=== PATIENT | male | born 1970 | race Caucasian/White ===

== ENCOUNTER 2018-01-26 10:55 | Emergency (ER) | payer OTHER ==
[2018-01-26 11:11] VITALS: RESP 18
[2018-01-26 11:43] LABS: Appearance,Urine Clear (Clear); Basophils % (A) 1 %; Bilirubin,Urine Negative (Negative); Blood,Urine Negative (Negative); Color,Urine Colorless; Eosinophils # (A) 0.1 k/uL (0-0.7); Eosinophils % (A) 2 %; Glucose,Urine (UA) Negative (Negative); HCT 45.3 % (39.0-53.0); HGB 16.2 gm/dL (13.0-17.5); Ketones,Urine Negative (Negative); Leukocyte Esterase,Urine Negative (Negative); Lymphocytes # (A) 1.6 k/uL (1.0-4.8); Lymphocytes % (A) 26 %; MCH 29.6 pg (25.0-35.0); MCHC 35.7 g/dL (31.0-37.0); MCV 82.8 fL (80.0-100.0); Mean Platelet Volume 7.4; Monocytes # (A) 0.4 k/uL (0-1.0); Monocytes % (A) 6 %; Neutrophils % (A) 64 %; Nitrite,Urine Negative (Negative); Platelet Count 182 k/uL (150-450); Protein,Urine Negative (Negative); RBC 5.47 m/uL (4.30-5.90); RDW 13.3 % (11.5-15.5); Specific Gravity,Urine 1.001 (1.001-1.035); Urobilinogen,Urine <2.0 mg/dL (<2.0); WBC 6.3 k/uL (3.8-10.6)
[2018-01-26 11:52] LABS: ALT 50 U/L (21-72); AST 28 U/L (17-59); Albumin 4.7 g/dL (3.5-5.0); Alkaline Phosphatase 60 U/L (38-126); Amylase 53 U/L (30-110); Anion Gap 13 mmol/L; Blood Urea Nitrogen 11 mg/dL (9-20); Calcium 9.6 mg/dL (8.4-10.2); Carbon Dioxide 28 mmol/L (22-30); Chloride 101 mmol/L (98-107); Glucose 87 mg/dL (74-99); Lipase 36 U/L (23-300); Sodium 142 mmol/L (137-145); Total Bilirubin 0.4 mg/dL (0.2-1.3)
--- NOTE | 2018-01-26 11:58 | ED ---
General Adult HPI - General Chief complaint: Abdominal Pain Stated complaint: abd pain Time Seen by Provider: 01/26/18 11:38 Source: patient, RN notes reviewed Mode of arrival: ambulatory Limitations: no limitations - History of Present Illness Initial comments: Patient's 47-year-old male presents emergency room today with a chief complaint of right-sided abdominal pain. Patient does admit that he began feeling some symptoms of weakness ago. Patient states that approximately or days ago began having increased pain to the right side of the lower abdomen. Patient does admit that he followed the family doctor advised coming to emergency room for CT of the abdomen. Patient denies any other complaints or associated symptoms. Patient denies any recent fever, chills, shortness of breath, chest pain, back pain, numbness or tingling, dysuria or hematuria, constipation or diarrhea, headaches or visual changes, or any other complaints. - Related Data Home Medications Medication Instructions Recorded Confirmed Acetaminophen-Codeine 300-30mg 1 tab PO BID PRN 01/26/18 01/26/18 [Tylenol w/codeine #3] Gabapentin [Neurontin] 100 mg PO BID PRN 01/26/18 01/26/18 diphenhydrAMINE HCL [Benadryl] 25 mg PO HS PRN 01/26/18 01/26/18 Allergies Allergy/AdvReac Type Severity Reaction Status Date / Time copper Allergy Unknown Verified 01/26/18 12:12 grape Allergy Anaphylaxis Verified 01/26/18 12:12 ibuprofen [From Motrin] Allergy Anaphylaxis Verified 01/26/18 12:12 lemon Allergy Anaphylaxis Verified 01/26/18 12:12 nickel Allergy Unknown Verified 01/26/18 12:12 NSAIDS (Non-Steroidal Allergy Anaphylaxis Verified 01/26/18 12:12 Anti-Inflamma warfarin Allergy Anaphylaxis Verified 01/26/18 12:12 Review of Systems ROS Statement: Those systems with pertinent positive or pertinent negative responses have been documented in the HPI. ROS Other: All systems not noted in ROS Statement are negative. 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 His labs been reviewed are unremarkable. Patient's CT the abdomen and pelvis was performed without contrast due to patient's history of ALLERGIES. Patient at this time is resting comfortably. His CT the abdomen and pelvis is negative for any acute abnormality. Results were discussed with the patient. Patient will be discharged home to follow-up the family doctor over the next 2 days. Advised return if any symptoms increase or worsen or for any other concerns. - Lab Data Result diagrams: 01/26/18 11:26 01/26/18 11:26 Lab Results 01/26/18 01/26/18 01/26/18 Range/Units 11:26 11:26 11:26 WBC 6.3 (3.8-10.6) k/uL RBC 5.47 (4.30-5.90) m/uL Hgb 16.2 (13.0-17.5) gm/dL Hct 45.3 (39.0-53.0) % MCV 82.8 (80.0-100.0) fL MCH 29.6 (25.0-35.0) pg MCHC 35.7 (31.0-37.0) g/dL RDW 13.3 (11.5-15.5) % Plt Count 182 (150-450) k/uL Neutrophils % 64 % Lymphocytes % 26 % Monocytes % 6 % Eosinophils % 2 % Basophils % 1 % Neutrophils # 4.0 (1.3-7.7) k/uL Lymphocytes # 1.6 (1.0-4.8) k/uL Monocytes # 0.4 (0-1.0) k/uL Eosinophils # 0.1 (0-0.7) k/uL Basophils # 0.0 (0-0.2) k/uL Sodium 142 (137-145) mmol/L Potassium 4.0 (3.5-5.1) mmol/L Chloride 101 (98-107) mmol/L Carbon Dioxide 28 (22-30) mmol/L Anion Gap 13 mmol/L BUN 11 (9-20) mg/dL Creatinine 0.82 (0.66-1.25) mg/dL Est GFR (CKD-EPI)AfAm >90 (>60 ml/min/1.73 sqM) Est GFR (CKD-EPI)NonAf >90 (>60 ml/min/1.73 sqM) Glucose 87 (74-99) mg/dL Calcium 9.6 (8.4-10.2) mg/dL Total Bilirubin 0.4 (0.2-1.3) mg/dL AST 28 (17-59) U/L ALT 50 (21-72) U/L Alkaline Phosphatase 60 (38-126) U/L Total Protein 7.0 (6.3-8.2) g/dL Albumin 4.7 (3.5-5.0) g/dL Amylase 53 (30-110) U/L Lipase 36 (23-300) U/L Urine Color Colorless Urine Appearance Clear (Clear) Urine pH 7.0 (5.0-8.0) Ur Specific Dunlap 1.001 (1.001-1.035) Urine Protein Negative (Negative) Urine Glucose (UA) Negative (Negative) Urine Ketones Negative (Negative) Urine Blood Negative (Negative) Urine Nitrite Negative (Negative) Urine Bilirubin Negative (Negative) Urine Urobilinogen <2.0 (<2.0) mg/dL Ur Leukocyte Esterase Negative (Negative) Disposition Clinical Impression: Abdominal pain Disposition: HOME SELF-CARE Condition: Good Instructions: Abdominal Pain (ED) Additional Instructions: Please follow-up with family doctor in the next 2 days of symptoms have not improved. Please return to emergency room if the symptoms increase or worsen or for any other concerns. Is patient prescribed a controlled substance at d/c from ED?: No Referrals: [facility],Clinic [Primary Care Provider] - 1-2 days Time of Disposition: 12:37
--- NOTE | 2018-01-26 12:24 | CT ---
EXAMINATION TYPE: CT abdomen pelvis wo con DATE OF EXAM: 01/26/2018 COMPARISON: NONE HISTORY: Right sided Abdominal pain CT DLP: 447.8 mGycm Examination of the solid and hollow viscera is limited given the lack of contrast. FINDINGS: LUNG BASES: No evidence for nodule. No evidence for infiltrate. LIVER/GB: The gallbladder is unremarkable. No space-occupying hepatic lesion. PANCREAS: No pancreatic mass identified. No inflammatory process seen. SPLEEN: No evidence for splenomegaly. No intrasplenic lesions seen. ADRENALS: No adrenal nodules identified. No evidence for thickening. KIDNEYS: No evidence for renal mass. No nephrolithiasis. No hydronephrosis. BOWEL: Previous appendectomy change. No evidence of bowel obstruction. No inflammatory process. Lymph nodes: No evidence for adenopathy greater than 1 cm. Abdominal aorta: Atheromatous changes seen. No evidence for aneurysm. Genital organs: No significant abnormality. Other: No significant abnormality. IMPRESSION: No acute intra-abdominal process.
[2018-01-26 13:00] VITALS: BP 126/80; PULSE 61; TEMP 98.1
== END 2018-01-26 12:59 | disposition home or self-care (01) ==
LOC: EC 10:55
DX: R10.31 Right lower quadrant pain (principal); Z91.048 Other nonmedicinal substance allergy status; Z91.018 Allergy to other foods; Z88.6 Allergy status to analgesic agent; Z88.8 Allergy status to other drugs, medicaments and biological substances
CPT/HCPCS: 36415; 74176; 80053; 81003; 82150; 83690; 85025; 99284

== ENCOUNTER → 2019-02-19 | Outpatient (CLI) | payer OTHER ==
--- NOTE | 2019-02-19 12:33 | MR ---
MR abdomen without contrast HISTORY: Previous abnormal exam on diagnostic imaging Multiplanar multisequence imaging through the abdomen Correlation to CT abdomen 01/26/2018 Exophytic focus present at the left upper kidney measures approximately 2.3 cm similar to prior exam. The upper pole the left kidney there is an exophytic focus measuring approximately 2.4 cm which is T 1 intense. The upper pole lesion on the left is isointense on T1 weighted images, both lesions T2 int ermediate to increased signal. Smaller focus at the midpole the right kidney in exophytic location me asures 1.8 cm similar to prior and is T2 bright. Subcentimeter T2 bright foci present within the mid to lower pole the left kidney more anteriorly There is no hydronephrosis bilaterally. No evident adre nal mass. The liver shows some signal drop on out of phase imaging suggesting some hepatic steatosis, size is upper limit of normal, and gallbladder is unremarkable. Pancreas is within normal limits. Sp paulina is upper limit of normal for size. Lung bases are clear. There is no retroperitoneal adenopathy or ascites evident. Aorta shows normal caliber. No evident bowel obstruction. IMPRESSION: Findings within the kidneys likely represent proteinaceous cysts. Follow-up can be perfor med to assess for stability. Additional findings above. Correlate for possible hepatic steatosis.
== END | disposition home or self-care (01) ==
LOC: RADMRIMAIN 07:36
DX: R93.89 Abnormal findings on diagnostic imaging of other specified body structures (principal)
CPT/HCPCS: 74181

== ENCOUNTER → 2019-07-17 | Outpatient (CLI) | payer OTHER ==
--- NOTE | 2019-07-18 14:32 | NM ---
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 Right knee replacement in 2013. Elier velazquez reports history of infection of the right knee following the first surgery. Multiple replaceme nts were needed in 2013. Technique: Triple phase bone scintigraphy was performed following the injection of 25.4 mCi Tc 99m MD P. Immediate images and 3.5 hours post injection images acquired. Imaging was centered at the bilate ral knees. FINDINGS: Flow images show no asymmetric hyperemia. Pool images are relatively symmetric. Photopenic defects re lating to revision right total knee arthroplasty. Only mild uptake along the tibial tray component on delayed images. No intense focal abnormal radiotracer accumulation at the right knee. IMPRESSION: No specific scintigraphic findings of revision right total knee arthroplasty loosening.
== END | disposition home or self-care (01) ==
LOC: RADNMMAIN 06:55
PROVIDERS: ATTEND Physician Assistant Medical
DX: T84.032A Mechanical loosening of internal right knee prosthetic joint, initial encounter (principal)
CPT/HCPCS: 78315; A9503

== ENCOUNTER → 2019-12-20 | Outpatient (CLI) | payer OTHER ==
--- NOTE | 2019-12-20 16:23 | NM ---
EXAMINATION TYPE: NM hepatobiliary w EF DATE OF EXAM: 12/20/2019 COMPARISON: NONE HISTORY: 49 year-old male right upper quadrant pain TECHNIQUE: After the intravenous administration of 5.1 mCi Tc 99m Mebrofenin hepatobiliary scintigrap hy is performed. Immediate images post injection. FINDINGS: There is satisfactory initial accumulation of tracer by the liver. The gallbladder is visualized wit hin 16 minutes. The small bowel activity is noted within 40 minutes. At one hour 8 ounces of oral e nsure plus is given to mimic CCK and gallbladder ejection fraction is calculated at 77 %, upper end o f the normal range. Therefore there is no scintigraphic evidence of cystic or common bile duct obstr uction to suggest acute cholecystitis or gallbladder dyskinesia. IMPRESSION: 1. No scintigraphic evidence for acute/chronic cholecystitis or biliary dyskinesia. 2. Gallbladder ejection fraction at the upper limits of the normal range. Elevated gallbladder ejecti on fraction may be seen in the setting of gallbladder hyperkinesis.
== END | disposition home or self-care (01) ==
LOC: RADNMMAIN 12:55
PROVIDERS: ATTEND Physician Assistant Medical
DX: K82.8 Other specified diseases of gallbladder (principal); Z91.030 Bee allergy status; Z91.040 Latex allergy status; Z91.011 Allergy to milk products; Z88.6 Allergy status to analgesic agent; Z91.018 Allergy to other foods; Z91.041 Radiographic dye allergy status; Z88.8 Allergy status to other drugs, medicaments and biological substances; Z88.3 Allergy status to other anti-infective agents
CPT/HCPCS: 78226; A9537

== ENCOUNTER 2020-04-10 17:18 | Emergency (ER) | payer OTHER ==
--- NOTE | 2020-04-10 17:58 | ED ---
General Adult HPI - General Chief complaint: Recheck/Abnormal Lab/Rx Stated complaint: infected lt hand Time Seen by Provider: 04/10/20 17:41 Source: patient, RN notes reviewed Mode of arrival: ambulatory Limitations: no limitations - History of Present Illness Initial comments: This is a 49-year-old male with a history of left hand/thumb surgery on February 22 of this year who currently is on antibiotics who presents with complaints of pain going up into his left arm. He has a fevers chills nausea vomiting sweats he was initially on amoxicillin and now is on Bactrim 6 days. He states that seems to be a better but can't explain the pain. - Related Data Home Medications Medication Instructions Recorded Confirmed Acetaminophen-Codeine 300-30mg 1 tab PO BID PRN 01/26/18 01/26/18 [Tylenol w/codeine #3] Gabapentin [Neurontin] 100 mg PO BID PRN 01/26/18 01/26/18 diphenhydrAMINE HCL [Benadryl] 25 mg PO HS PRN 01/26/18 01/26/18 Allergies Allergy/AdvReac Type Severity Reaction Status Date / Time copper Allergy Unknown Verified 04/10/20 17:30 grape Allergy Anaphylaxis Verified 04/10/20 17:30 ibuprofen [From Motrin] Allergy Anaphylaxis Verified 04/10/20 17:30 lemon Allergy Anaphylaxis Verified 04/10/20 17:30 nickel Allergy Unknown Verified 04/10/20 17:30 NSAIDS (Non-Steroidal Allergy Anaphylaxis Verified 04/10/20 17:30 Anti-Inflamma warfarin Allergy Anaphylaxis Verified 04/10/20 17:30 Review of Systems ROS Statement: Those systems with pertinent positive or pertinent negative responses have been documented in the HPI. ROS Other: All systems not noted in ROS Statement are negative. 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 History of Any Multi-Drug Resistant Organisms: None Reported Past Surgical History: Joint Replacement, Orthopedic Surgery Additional Past Surgical History / Comment(s): L hand Past Psychological History: No Psychological Hx Reported Smoking Status: Never smoker Past Alcohol Use History: None Reported Past Drug Use History: None Reported General Exam - General Exam Comments Initial Comments: This is a well-developed well-nourished awake alert oriented 3 male Limitations: no limitations General appearance: alert, in no apparent distress Head exam: Present: atraumatic, normocephalic, normal inspection Eye exam: Present: normal appearance. Absent: scleral icterus, conjunctival injection, periorbital swelling Neck exam: Present: normal inspection. Absent: tenderness, meningismus, lymphadenopathy Respiratory exam: Absent: respiratory distress, wheezes, rales, rhonchi, stridor Cardiovascular Exam: Present: regular rate. Absent: systolic murmur, diastolic murmur, rubs, gallop, clicks GI/Abdominal exam: Present: soft, normal bowel sounds. Absent: distended, tenderness, guarding, rebound, rigid Extremities exam: Present: full ROM, tenderness, normal capillary refill, other (Examination left upper extremity demonstrates equal and normal ulnar and radial artery pulses at the wrist. Scar seen over the region of the anatomical snuffbox on the left. Capillary refills less than 2 seconds to all extremities. No sensory deficits. There is tenderness palpation along the medial aspect of the left arm extending up into the axilla. No evidence of lymphangitis however at this time no increased localized temperature.). Absent: pedal edema, joint swelling, calf tenderness Neurological exam: Present: alert, oriented X3, CN II-XII intact Psychiatric exam: Present: normal affect, normal mood Skin exam: Present: warm, dry, intact, normal color. Absent: rash Course Vital Signs 04/10/20 04/10/20 17:31 18:24 Temperature 98.1 F Pulse Rate 83 Respiratory 18 16 Rate Blood Pressure 138/81 O2 Sat by Pulse 96 Oximetry Medical Decision Making - Medical Decision Making The patient examination did not seem to indicate an infectious etiology at this time ultrasound negative no palpable cords. No evidence of any clots this time. Patient will be discharged and keep his follow-up with his hand surgeon at [facility]. - Lab Data Result diagrams: 04/10/20 17:56 04/10/20 17:56 Lab Results 04/10/20 04/10/20 04/10/20 Range/Units 17:56 17:56 17:56 WBC 9.8 (3.8-10.6) k/uL RBC 5.06 (4.30-5.90) m/uL Hgb 14.6 (13.0-17.5) gm/dL Hct 43.2 (39.0-53.0) % MCV 85.4 (80.0-100.0) fL MCH 28.9 (25.0-35.0) pg MCHC 33.9 (31.0-37.0) g/dL RDW 11.9 (11.5-15.5) % Plt Count 204 (150-450) k/uL Neutrophils % 84 % Lymphocytes % 10 % Monocytes % 4 % Eosinophils % 1 % Basophils % 1 % Neutrophils # 8.2 H (1.3-7.7) k/uL Lymphocytes # 1.0 (1.0-4.8) k/uL Monocytes # 0.4 (0-1.0) k/uL Eosinophils # 0.1 (0-0.7) k/uL Basophils # 0.1 (0-0.2) k/uL D-Dimer 2.64 H (<0.60) mg/L FEU Sodium 136 L (137-145) mmol/L Potassium 3.8 (3.5-5.1) mmol/L Chloride 102 (98-107) mmol/L Carbon Dioxide 22 (22-30) mmol/L Anion Gap 12 mmol/L BUN 11 (9-20) mg/dL Creatinine 0.91 (0.66-1.25) mg/dL Est GFR (CKD-EPI)AfAm >90 (>60 ml/min/1.73 sqM) Est GFR (CKD-EPI)NonAf >90 (>60 ml/min/1.73 sqM) Glucose 136 H (74-99) mg/dL Calcium 9.1 (8.4-10.2) mg/dL Magnesium 2.2 (1.6-2.3) mg/dL Total Bilirubin 0.3 (0.2-1.3) mg/dL AST 27 (17-59) U/L ALT 18 (4-49) U/L Alkaline Phosphatase 53 (38-126) U/L Creatine Kinase 180 H (55-170) U/L Total Protein 6.8 (6.3-8.2) g/dL Albumin 4.7 (3.5-5.0) g/dL - Radiology Data Radiology results: report reviewed (I did review the imaging and report no acute findings.), image reviewed Disposition Clinical Impression: Arm pain, left, Feared condition not demonstrated Disposition: HOME SELF-CARE Condition: Good Instructions (If sedation given, give patient instructions): Arm Pain (ED) Is patient prescribed a controlled substance at d/c from ED?: No Referrals: [facility],Clinic [Primary Care Provider] - 1-2 days
[2020-04-10 18:14] LABS: Basophils # (A) 0.1 k/uL (0-0.2); Basophils % (A) 1 %; Eosinophils # (A) 0.1 k/uL (0-0.7); Eosinophils % (A) 1 %; HCT 43.2 % (39.0-53.0); HGB 14.6 gm/dL (13.0-17.5); Lymphocytes % (A) 10 %; MCH 28.9 pg (25.0-35.0); MCHC 33.9 g/dL (31.0-37.0); MCV 85.4 fL (80.0-100.0); Mean Platelet Volume 8.2; Monocytes # (A) 0.4 k/uL (0-1.0); Monocytes % (A) 4 %; Neutrophils # (A) 8.2 k/uL (1.3-7.7); Neutrophils % (A) 84 %; Platelet Count 204 k/uL (150-450); RBC 5.06 m/uL (4.30-5.90); RDW 11.9 % (11.5-15.5); WBC 9.8 k/uL (3.8-10.6)
[2020-04-10 18:25] VITALS: RESP 16
[2020-04-10 18:25] LABS: ALT 18 U/L (4-49); AST 27 U/L (17-59); African American GFR (CKD) >90 (>60 ml/min/1.73 sqM); Albumin 4.7 g/dL (3.5-5.0); Alkaline Phosphatase 53 U/L (38-126); Anion Gap 12 mmol/L; Blood Urea Nitrogen 11 mg/dL (9-20); Calcium 9.1 mg/dL (8.4-10.2); Carbon Dioxide 22 mmol/L (22-30); Chloride 102 mmol/L (98-107); Creatine Kinase 180 U/L (55-170); Glucose 136 mg/dL (74-99); Magnesium 2.2 mg/dL (1.6-2.3); Non-African American GFR(CKD) >90 (>60 ml/min/1.73 sqM); Potassium 3.8 mmol/L (3.5-5.1); Sodium 136 mmol/L (137-145); Total Bilirubin 0.3 mg/dL (0.2-1.3); Total Protein 6.8 g/dL (6.3-8.2)
--- NOTE | 2020-04-10 19:15 | US ---
EXAMINATION TYPE: US venous doppler duplex UE LT DATE OF EXAM: 04/10/2020 COMPARISON: NONE CLINICAL HISTORY: Postoperative pain. Recent surgery to left hand, pt having left hand/lower arm swel ling and redness SIDE PERFORMED: Left Left Arm: Negative for DVT There is patency of the subclavian axillary and brachial vein of the left arm. IMPRESSION: No evidence of deep vein thrombosis in the left arm.
[2020-04-10 20:17] VITALS: BP 129/72; PULSE 77; TEMP 98.5
== END 2020-04-10 20:10 | disposition home or self-care (01) ==
LOC: EC 17:18
DX: M79.602 Pain in left arm (principal); R50.9 Fever, unspecified; R11.2 Nausea with vomiting, unspecified; R61 Generalized hyperhidrosis; Z88.6 Allergy status to analgesic agent; Z88.8 Allergy status to other drugs, medicaments and biological substances; Z91.018 Allergy to other foods; Z91.048 Other nonmedicinal substance allergy status; Z71.1 Person with feared health complaint in whom no diagnosis is made
CPT/HCPCS: 36415; 80053; 82550; 83735; 85025; 85379; 87040; 99284

== ENCOUNTER 2020-04-11 09:22 | Emergency (ER) | payer OTHER ==
[2020-04-11 09:29] VITALS: TEMP 98.2
--- NOTE | 2020-04-11 09:48 | ED ---
Extremity Problem HPI - General Chief complaint: Extremity Problem,Nontraumatic Stated complaint: poss blood clot in leg Time Seen by Provider: 04/11/20 09:30 Source: patient Mode of arrival: ambulatory Limitations: no limitations - History of Present Illness Initial comments: Patient is a 49-year-old male presenting to the emergency department complaints of right leg cramping has been intermittent for the past few days. 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 He is concerned he may have another one. He is no longer on blood thinner. Patient states he has been having some cramping in his calf, pain behind the knee. He does admit to multiple surgeries of his right knee secondary to trauma injury, said to knee replacements. He denies any shortness of breath, cough, fever. He has no further complaints at this time. Upon arrival to the ER, his vital signs are stable. - Related Data Home Medications Medication Instructions Recorded Confirmed Acetaminophen-Codeine 300-30mg 1 tab PO BID PRN 01/26/18 04/11/20 [Tylenol w/codeine #3] Montelukast [Singulair] 10 mg PO DAILY 04/11/20 04/11/20 Otezla Unknown Dose 1 tab PO BID 04/11/20 04/11/20 Sulfamethox-Tmp 800-160Mg [Bactrim 1 tab PO Q12HR 04/11/20 04/11/20 DS 800-160 mg] Allergies Allergy/AdvReac Type Severity Reaction Status Date / Time copper Allergy Unknown Verified 04/11/20 10:39 grape Allergy Anaphylaxis Verified 04/11/20 10:39 ibuprofen [From Motrin] Allergy Anaphylaxis Verified 04/11/20 10:39 lemon Allergy Anaphylaxis Verified 04/11/20 10:39 nickel Allergy Unknown Verified 04/11/20 10:39 NSAIDS (Non-Steroidal Allergy Anaphylaxis Verified 04/11/20 10:39 Anti-Inflamma warfarin Allergy Anaphylaxis Verified 04/11/20 10:39 Review of Systems ROS Statement: Those systems with pertinent positive or pertinent negative responses have been documented in the HPI. ROS Other: All systems not noted in ROS Statement are negative. 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 Patient is nontoxic and in no acute distress. HEAD: Atraumatic, normocephalic. EYES: Pupils equal round and reactive to light, extraocular movements intact, sclera anicteric, conjunctiva are normal. Eyelids were unremarkable. ENT: TMs normal, nares patent, oropharynx clear without exudates. Moist mucous membranes. NECK: Normal range of motion, supple without lymphadenopathy or JVD. LUNGS: Unlabored respirations. Breath sounds clear to auscultation bilaterally and equal. No wheezes rales or rhonchi. HEART: Regular rate and rhythm without murmurs, rubs or gallops. ABDOMEN: Soft, nontender, normoactive bowel sounds. No guarding, no rebound. No masses appreciated. : Deferred MUSCULOSKELETAL: He has mild pain with palpation of the right calf, no swelling or erythema. He has full range of motion. He is neurovascular intact. No clubbing or cyanosis. NEUROLOGICAL: Cranial nerves II through XII grossly intact. Symmetrical smile. Normal speech, normal gait. PSYCH: Normal mood, normal affect. SKIN: Warm, Dry, normal turgor, no rashes or lesions noted. Limitations: no limitations Course Vital Signs 04/11/20 04/11/20 09:24 11:14 Temperature 98.2 F Pulse Rate 81 76 Respiratory 18 16 Rate Blood Pressure 129/83 122/78 O2 Sat by Pulse 96 98 Oximetry Medical Decision Making - Medical Decision Making Patient is a 49-year-old male here for right lower leg cramping, pain, concern for DVT. He does a history of 2 prior DVTs, no longer on blood thinners. His last was in 2013. There is no swelling or erythema on exam, he is tender in the right calf and right posterior knee. Neurovascular intact. Ultrasound of the right lower extremity reveals no evidence of DVT. I did discuss these findings with the patient. He will follow up with his PCP as needed. He is stable for discharge. Disposition Clinical Impression: Cramps of right lower extremity Disposition: HOME SELF-CARE Condition: Stable Instructions (If sedation given, give patient instructions): Normal Exam (ED) Additional Instructions: Please return to the Emergency Department if symptoms worsen or any other concerns. Increase water intake, follow up with PCP as needed. Is patient prescribed a controlled substance at d/c from ED?: No Referrals: [facility],Clinic [Primary Care Provider] - 1-2 days
--- NOTE | 2020-04-11 10:59 | US ---
EXAMINATION TYPE: US venous doppler duplex LE RT DATE OF EXAM: 04/11/2020 10:50 AM COMPARISON: NONE CLINICAL HISTORY: pain, cramping, hx of DVT. SIDE PERFORMED: Right TECHNIQUE: The lower extremity deep venous system is examined utilizing real time linear array sonog naeem with graded compression, doppler sonography and color-flow sonography. VESSELS IMAGED: External Iliac Vein (EIV) Common Femoral Vein Deep Femoral Vein Greater Saphenous Vein * Femoral Vein Popliteal Vein Small Saphenous Vein * Proximal Calf Veins (* superficial vessels) Right Leg: Negative for DVT IMPRESSION: Grayscale, color doppler, spectral doppler imaging performed of the deep veins of the lo wer extremities. There is normal flow, compressibility, vascular waveforms.
[2020-04-11 11:16] VITALS: BP 122/78; PULSE 76; RESP 16
== END 2020-04-11 11:14 | disposition home or self-care (01) ==
LOC: EC 09:22
DX: R25.2 Cramp and spasm (principal); M25.561 Pain in right knee; M79.661 Pain in right lower leg; Z79.899 Other long term (current) drug therapy; Z91.048 Other nonmedicinal substance allergy status; Z88.6 Allergy status to analgesic agent; Z91.018 Allergy to other foods; Z88.8 Allergy status to other drugs, medicaments and biological substances; Z96.651 Presence of right artificial knee joint; Z98.890 Other specified postprocedural states; Z86.718 Personal history of other venous thrombosis and embolism
CPT/HCPCS: 99283

== ENCOUNTER 2020-05-15 10:55 | Emergency (ER) | payer OTHER ==
--- NOTE | 2020-05-15 12:33 | US ---
EXAMINATION TYPE: US venous doppler duplex LE LT DATE OF EXAM: 05/15/2020 11:44 AM COMPARISON: NONE CLINICAL HISTORY: pain. pain behind left knee SIDE PERFORMED: Left TECHNIQUE: The lower extremity deep venous system is examined utilizing real time linear array sonog naeem with graded compression, doppler sonography and color-flow sonography. VESSELS IMAGED: External Iliac Vein (EIV) Common Femoral Vein Deep Femoral Vein Greater Saphenous Vein * Femoral Vein Popliteal Vein Small Saphenous Vein * Proximal Calf Veins (* superficial vessels) Left Leg: no evidence of DVT IMPRESSION: Grayscale, color doppler, spectral doppler imaging performed of the deep veins of the lo wer extremities. There is normal flow, compressibility, vascular waveforms.
[2020-05-15 12:43] VITALS: BP 137/89; PULSE 74; RESP 18; TEMP 97.9
--- NOTE | 2020-05-15 12:43 | ED ---
Extremity Problem HPI - General Chief complaint: Extremity Problem,Nontraumatic Stated complaint: blood clot Time Seen by Provider: 05/15/20 11:26 Source: patient, RN notes reviewed Mode of arrival: ambulatory Limitations: no limitations - History of Present Illness Initial comments: 49-year-old male presents emergency from chief complaint of left knee pain. Patient states she's had pain and a popsicle region last few days. Patient will PCP today and which they directed him to emergency from for possible DVT. Patient denies any chest pain or shortness breath. Patient does wear a brace on his right knee which is been chronic in nature. Patient states that he's had no leg swelling no fevers or chills no other complaints. He states that the pain worsens when he sits for a prolonged period of time he is able to ambulate and states pain improves. - Related Data Home Medications Medication Instructions Recorded Confirmed Acetaminophen-Codeine 300-30mg 1 - 2 tab PO BID PRN 01/26/18 05/15/20 [Tylenol w/codeine #3] Allergies Allergy/AdvReac Type Severity Reaction Status Date / Time copper Allergy Unknown Verified 05/15/20 11:51 cortisone Allergy Unknown Verified 05/15/20 11:51 grape Allergy Anaphylaxis Verified 05/15/20 11:51 ibuprofen [From Motrin] Allergy Anaphylaxis Verified 05/15/20 11:51 lemon Allergy Anaphylaxis Verified 05/15/20 11:51 nickel Allergy Unknown Verified 05/15/20 11:51 NSAIDS (Non-Steroidal Allergy Anaphylaxis Verified 05/15/20 11:51 Anti-Inflamma warfarin Allergy Anaphylaxis Verified 05/15/20 11:51 Review of Systems ROS Statement: Those systems with pertinent positive or pertinent negative responses have been documented in the HPI. ROS Other: All systems not noted in ROS Statement are negative. Past Medical History Past Medical History: Deep Vein Thrombosis (DVT) Additional Past Medical History / Comment(s): seasonal allergies, nerve problem, pt states that rt knee is rejecting the joint History of Any Multi-Drug Resistant Organisms: None Reported Past Surgical History: Joint Replacement, Orthopedic Surgery Additional Past Surgical History / Comment(s): L hand, right knee replacement Past Psychological History: No Psychological Hx Reported Smoking Status: Never smoker Past Alcohol Use History: None Reported Past Drug Use History: None Reported General Exam Limitations: no limitations General appearance: alert, in no apparent distress Head exam: Present: atraumatic, normocephalic, normal inspection Respiratory exam: Present: normal lung sounds bilaterally. Absent: respiratory distress, wheezes, rales, rhonchi, stridor Cardiovascular Exam: Present: regular rate, normal rhythm, normal heart sounds. Absent: systolic murmur, diastolic murmur, rubs, gallop, clicks Extremities exam: Present: other (Left knee there is tenderness the popliteal region there is mild swelling there is no erythema patient's full range of motion is no leg swelling pulses equal bilaterally) Course Vital Signs 05/15/20 11:16 Temperature 99.1 F Pulse Rate 77 Respiratory 16 Rate Blood Pressure 125/84 O2 Sat by Pulse 97 Oximetry Medical Decision Making - Medical Decision Making Ultrasound was performed in the left lower extremity there is no acute DVT. Discussed possibility of Domingo's cyst. Patient we discharged with close follow- up with PCP, orthopedics. Did discuss pain control. Disposition Clinical Impression: Left knee pain Disposition: HOME SELF-CARE Condition: Stable Instructions (If sedation given, give patient instructions): Knee Pain (ED), Bakers Cyst (ED) Additional Instructions: Please return to the Emergency Department if symptoms worsen or any other concerns. Is patient prescribed a controlled substance at d/c from ED?: No [facility]errals: [facility] [Primary Care Provider] - 1-2 days Time of Disposition: 12:43
== END 2020-05-15 13:00 | disposition home or self-care (01) ==
LOC: EC 10:55
DX: M25.562 Pain in left knee (principal); Z88.6 Allergy status to analgesic agent; Z88.8 Allergy status to other drugs, medicaments and biological substances; Z91.018 Allergy to other foods; Z91.048 Other nonmedicinal substance allergy status; Z96.651 Presence of right artificial knee joint; Z86.718 Personal history of other venous thrombosis and embolism
CPT/HCPCS: 99283

== ENCOUNTER → 2020-07-19 | Outpatient (CLI) | payer OTHER ==
--- NOTE | 2020-07-20 16:38 | MR ---
EXAMINATION TYPE: MR angio abd/pelvis wo/w con DATE OF EXAM: 07/19/2020 COMPARISON: CT abdomen and pelvis January 26, 2018 HISTORY: Splenic artery aneurysm, abdominal pain CONTRAST: Standard multiplanar, multisequence MRI departmental protocol utilizing 8 mL intravenous Gadavist linda olinium contrast. 3-D reconstructed images created on a independent workstation and reviewed. FINDINGS: Vascular: There is no aneurysm in the abdominal aorta. There is poor flow in the celiac artery at its origin suggesting possible celiac artery compression seen best near image 68 series 801. SMA is burgos nt without significant stenosis. Patent small caliber right renal artery and larger caliber left gonzalez l artery with significant narrowing at its origin seen best image 70 series 801. Findings correlate t o axial image 51. Patent MAYRA seen best on axial images. There are patent common and external iliac ar teries extending to common femoral arteries bilaterally. There is artifact degradation in the periphe ry making evaluation of the splenic artery suboptimal near the hilum. There is however confirmation o f eccentric to 2.6 x 2.0 cm aneurysm seen best on axial image just posterior to the pancreatic tail a xial image 86 series 1001. This lesion is isodense to the adjacent slightly tortuous splenic artery. Other: Lung bases are grossly clear. The liver, gallbladder, spleen, pancreas, both adrenal glands ar e normal in size. No concerning renal mass or hydronephrosis. No suspicious bowel dilatation. No intr a-abdominal ascites. Osseous structures are intact. Some lumbar spinal canal stenosis L4-L5 level cor onal image 28 series 201 noted. IMPRESSION: Documentation of 2.6 cm splenic artery aneurysm. Possible celiac artery compression syndr ome correlate clinically. Significant narrowing at origin of left renal artery suspected. Correlate c linically.
== END | disposition home or self-care (01) ==
LOC: RADMRIMAIN 08:30
PROVIDERS: ATTEND Surgery
DX: I72.8 Aneurysm of other specified arteries (principal)
CPT/HCPCS: 74185; 72198; A9585

== ENCOUNTER 2020-08-15 06:06 | Day surgery (SDC) | payer OTHER ==
[2020-08-14 09:20] VITALS: BMI 23.7
[~2020-08-15 06:06] MED LIST: ALPRAZolam 0.25 MG TAB PO PRN; SODIUM CHLORIDE 0.9% 1,000 ML in EMPTY BAG 1 BAG IV ONE
[2020-08-15 06:35] VITALS: RESP 18; TEMP 98.2
[2020-08-15 06:36] LABS: Basophils # (A) 0.1 k/uL (0-0.2); Basophils % (A) 1 %; Eosinophils # (A) 0.1 k/uL (0-0.7); Eosinophils % (A) 2 %; HCT 45.6 % (39.0-53.0); HGB 16.2 gm/dL (13.0-17.5); Lymphocytes # (A) 1.8 k/uL (1.0-4.8); Lymphocytes % (A) 30 %; MCHC 35.4 g/dL (31.0-37.0); MCV 84.6 fL (80.0-100.0); Mean Platelet Volume 8.1; Monocytes # (A) 0.4 k/uL (0-1.0); Monocytes % (A) 7 %; Neutrophils # (A) 3.6 k/uL (1.3-7.7); Neutrophils % (A) 59 %; Platelet Count 213 k/uL (150-450); RBC 5.39 m/uL (4.30-5.90); RDW 11.7 % (11.5-15.5); WBC 6.1 k/uL (3.8-10.6)
[2020-08-15 06:50] LABS: African American GFR (CKD) >90 (>60 ml/min/1.73 sqM); Anion Gap 7 mmol/L; Blood Urea Nitrogen 15 mg/dL (9-20); Calcium 9.5 mg/dL (8.4-10.2); Carbon Dioxide 27 mmol/L (22-30); Chloride 104 mmol/L (98-107); Glucose 116 mg/dL (74-99); Non-African American GFR(CKD) >90 (>60 ml/min/1.73 sqM); Sodium 138 mmol/L (137-145)
[2020-08-15] MEDS ORDERED: ASPIRIN 325 MG TAB PO PRN (07:00)
[2020-08-15] MEDS ORDERED: diphenhydrAMINE 50 MG/ML 1 ML VIAL ONE (07:08)
[2020-08-15] MEDS ORDERED: FAMOTIDINE 20 MG/2 ML VIAL ONE (07:09)
[2020-08-15] MEDS ORDERED: methylPREDNISolone SOD SUCCI 125 MG/2 ML VIAL ONE (07:09)
[2020-08-15] MEDS ORDERED: MIDAZOLAM 2 MG/2 ML VIAL IVP ONE (07:30)
[2020-08-15] MEDS ORDERED: fentaNYL (PF) 50 MCG/ML 2 ML AMP IV ONE (07:30)
[2020-08-15] MEDS ORDERED: LIDOCAINE 1% INJ 10MG/ML (20 ML MDV) SQ ONE (07:35)
[2020-08-15] MEDS ORDERED: IOPAMIDOL-250 100ML BTL INTRAARTER ONE (08:16)
[2020-08-15] MEDS ORDERED: IOPAMIDOL-250 50ML BTL INTRAARTER ONE (08:16)
--- NOTE | 2020-08-15 08:49 | P.OP ---
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 Celiac artery at the takeoff demonstrated greater than 95% stenosis with post stenosis dilatation. No evidence of splenic artery aneurysm. The splenic artery appears to be patent without any significant disease. SMA is large without any significant disease. MAYRA is patent but diminutive. Operative narrative: After written informed consent was obtained the patient all risks benefits competitions were described the patient is brought to the First Aid Nurse and laid in a supine position. The area of the right groin was prepped and draped in the usual sterile fashion. Local anesthesia with moderate sedation was performed with continuous pulse ox monitoring and EKG monitoring. Utilizing ultrasound the right common femoral artery was visualized and shown to be patent without any significant plaque. Utilizing a multipurpose needle under ultrasound guidance the artery was accessed. Guidewire was placed followed by 5-Iranian sheath. 035 Glidewire was then placed into the aorta followed by pigtail catheter. Angiogram was then obtained of the aorta. Multiple views of the aorta and celiac artery, SMA were obtained demonstrating no evidence of an aneurysm. Multiple wires were then attempted to get into the celiac artery across the stenosis which was unsuccessful. He may benefit from arm access and another attempt at access through the celiac artery if his pain continues. Once completed all guidewires, catheters and sheaths were removed and pressure was placed for hemostasis. Patient tolerated procedure well was sent to PACU for recovery
--- NOTE | 2020-08-15 10:23 | IR ---
EXAMINATION TYPE: IR angio mesenteric DATE OF EXAM: 08/15/2020 COMPARISON: NONE HISTORY: Fluoroscopy time. Fluoroscopy was provided to the referring clinician.
[2020-08-15 18:05] VITALS: BP 117/76; PULSE 76
== END 2020-08-15 15:52 | disposition home or self-care (01) ==
LOC: CATHCVL 06:06
PROVIDERS: ATTEND Surgery
DX: I77.4 Celiac artery compression syndrome (principal); R10.12 Left upper quadrant pain; I70.1 Atherosclerosis of renal artery; K55.059 Acute (reversible) ischemia of intestine, part and extent unspecified; I82.409 Acute embolism and thrombosis of unspecified deep veins of unspecified lower extremity; M51.9 Unspecified thoracic, thoracolumbar and lumbosacral intervertebral disc disorder; L23.0 Allergic contact dermatitis due to metals; H91.90 Unspecified hearing loss, unspecified ear; K64.9 Unspecified hemorrhoids; E78.5 Hyperlipidemia, unspecified; R10.2 Pelvic and perineal pain; M25.519 Pain in unspecified shoulder; D17.9 Benign lipomatous neoplasm, unspecified; M19.90 Unspecified osteoarthritis, unspecified site; H93.19 Tinnitus, unspecified ear; Z79.899 Other long term (current) drug therapy; Z79.51 Long term (current) use of inhaled steroids; Z88.6 Allergy status to analgesic agent; Z88.8 Allergy status to other drugs, medicaments and biological substances; Z91.041 Radiographic dye allergy status; Z88.5 Allergy status to narcotic agent; Z91.018 Allergy to other foods; Z91.011 Allergy to milk products; Z91.030 Bee allergy status; Z98.890 Other specified postprocedural states; Z82.0 Family history of epilepsy and other diseases of the nervous system; Z80.9 Family history of malignant neoplasm, unspecified
CPT/HCPCS: 36245; 75625; 75774; 75726; 76937; 80048; 85025; C1769 ×3; C1894; J2250; J1200; J2930; J2001; J3010; Q9966 ×2

== ENCOUNTER → 2020-12-25 | Outpatient (CLI) | payer OTHER ==
--- NOTE | 2020-12-25 09:12 | MR ---
EXAMINATION TYPE: MR brain/cspine wo DATE OF EXAM: 12/25/2020 COMPARISON: NONE HISTORY: Cervicalgia, R occular pain, neck, head and Rt shoulder pain TECHNIQUE: Multiplanar, multisequence imaging of the brain and brainstem lumbar cervical spine are al l performed without IV contrast. FINDINGS: Brain: Diffusion weighted images demonstrate no evidence of a recent infarct or other diffusion abnormality. There is no extraaxial fluid collection or significant white matter signal abnormality. The ventricu lar system and cisternal spaces are normal in size and appearance. The brain volume is age appropria te. T2 Star weighted images show no suspicious intraparenchymal blood products. Midline structures demonstrate normal morphology. The craniocervical junction appears within normal limits. Normal vascular flow voids are present. Dominant or larger caliber left vertebral artery inci dentally noted. The visualized sinuses are clear and the globes are intact. IMPRESSION: No suspicious findings. C-SPINE: FINDINGS: Sagittal images of the cervical spine show the craniocervical junction to appear within nor mal limits. The cervical and upper thoracic spinal cord is normal in course, caliber, and signal. Sl ight grade 1 retrolisthesis C5 on C6. The vertebral body and intravertebral disk heights are normal. The bone marrow signal intensity is within normal limits. Axial images show the C2-C3 level to appear within normal limits. Axial images at C3-C4 level shows broad-based left paracentral disc protrusion effacing the anterior thecal sac of the ventral surface of spinal cord measuring approximately 2.5 mm AP diameter by 8.4 mm transversely on axial image 46. Patent bilateral neural foramina. Axial images at C4-C5 level appear within normal limits. Axial images at C5-C6 levels with spondylolisthesis with lobulated broad-based posterior disc protrus ion more prominent on the right where there is slight indenting of the bilateral cervical spinal cord , there is mild bilateral neural foraminal narrowing at this level. Axial images at C6-C7 level show focal right paracentral disc protrusion effacing anterolateral theca l sac on axial image 20, this is causing mild to moderate inferior right-sided neural foraminal narro wing. Left-sided neural foramina is patent. Axial images at C7-T1 level appear within normal limits. IMPRESSION: Spondylolisthesis C5-C6 level. Multilevel degenerative changes C3-C4, C5-C6, and C6-C7 le vels.
== END | disposition home or self-care (01) ==
LOC: RADMRIMAIN 07:52
PROVIDERS: ATTEND Physician Assistant Medical
DX: M47.812 Spondylosis without myelopathy or radiculopathy, cervical region (principal); M43.12 Spondylolisthesis, cervical region
CPT/HCPCS: 70551; 72141

== ENCOUNTER → 2021-03-05 | Outpatient (CLI) | payer OTHER ==
--- NOTE | 2021-03-05 13:16 | NM ---
EXAMINATION TYPE: NM hepatobiliary w EF DATE OF EXAM: 03/05/2021 COMPARISON: 12/20/2019 HISTORY: Upper abdominal pain TECHNIQUE: After the intravenous administration of 5.0 mCi Tc 99m Mebrofenin hepatobiliary scintigrap hy is performed. Immediate images post injection. FINDINGS: There is satisfactory initial accumulation of tracer by the liver. The gallbladder is visualized wit hin 10 minutes. The small bowel activity is noted within 13 minutes. At one hour 8 ounces of oral e nsure plus is given to mimic CCK and gallbladder ejection fraction is calculated at 69 %, in the norm al range. Therefore there is no scintigraphic evidence of cystic or common bile duct obstruction to suggest acute cholecystitis or gallbladder dyskinesia. IMPRESSION: 1. No evidence of acute/chronic cholecystitis or biliary dyskinesia. 2. Gallbladder ejection fraction normal.
== END | disposition home or self-care (01) ==
LOC: RADNMMAIN 06:56
PROVIDERS: ATTEND Physician Assistant Medical
DX: R10.10 Upper abdominal pain, unspecified (principal)
CPT/HCPCS: 78226; A9537

== ENCOUNTER 2021-07-06 08:32 | Day surgery (SDC) | payer OTHER ==
[2021-07-04 15:59] VITALS: BMI 23.7
[~2021-07-06 08:32] MED LIST changes: -ALPRAZolam 0.25 MG TAB PO PRN; +LACTATED RINGERS 1,000 ML IV SCH; -SODIUM CHLORIDE 0.9% 1,000 ML in EMPTY BAG 1 BAG IV ONE
[2021-07-06 09:49] VITALS: TEMP 97.8
[2021-07-06] MEDS ORDERED: LACTATED RINGERS 1,000 ML IV ONE (09:49)
[2021-07-06] MEDS ORDERED: LIDOCAINE 1% INJ 10MG/ML (20 ML MDV) ONE (10:27)
[2021-07-06] MEDS ORDERED: PROPOFOL 10 MG/ML 20 ML VIAL IV ONE (10:27)
--- NOTE | 2021-07-06 10:47 | P.PCN ---
Date of Procedure: 07/06/21 Procedure(s) Performed: BRIEF HISTORY: Patient is a 50-year-old pleasant white male scheduled for an elective colonoscopy as a part of value should of chronic diarrhea for the last 5 days duration. He has bowel movements anywhere from 5-10 a day which are loose to watery in consistency with occasional blood or mucus in the stool. PROCEDURE PERFORMED: Colonoscopy. With random biopsies PREOPERATIVE DIAGNOSIS: Chronic diarrhea 5 years duration.. IV sedation per Anesthesia. PROCEDURE: After informed consent was obtained, the patient, was brought into the endoscopy unit. IV sedation was administered by Anesthesia under continuous monitoring. Digital rectal examination was normal. Initially the Olympus CF-160 flexible video colonoscope was then inserted in the rectum, gradually advanced into the cecum without any difficulty. Careful examination was performed as the scope was gradually being withdrawn. Ileocecal valve and the appendiceal orifice were visualized and appeared normal. Prep was excellent. Terminal ileum was intubated and 20 cm visualized and appeared normal. Biopsies were done from this area. Mucosa of the cecum, ascending colon, transverse colon, descending colon, sigmoid colon, and rectum appeared normal. Biopsies were done from ascending and descending colon to rule out microscopic/collagenous colitis Retroflexion was performed in the rectum and all internal hemorrhoids were seen. The patient tolerated the procedure well. IMPRESSION: Normal-appearing colon from rectum to cecum with no evidence of colitis or colorectal neoplasia Normal-appearing terminal ileum Small internal hemorrhoids . RECOMMENDATIONS: Findings of this examination were discussed with the patient as well as his family. He was advised to follow with the biopsy results. In the meantime he can use [id number] Imodium as needed.
[2021-07-06 11:15] VITALS: BP 119/78; PULSE 64; RESP 15
== END 2021-07-06 11:56 | disposition home or self-care (01) ==
LOC: ORWHC2ENDO 08:32
PROVIDERS: ATTEND Internal Medicine Gastroenterology
DX: K64.8 Other hemorrhoids (principal); K52.9 Noninfective gastroenteritis and colitis, unspecified
CPT/HCPCS: 45380; J2001; J2704; 88305

== ENCOUNTER 2021-11-01 19:42 | Emergency (ER) | payer OTHER ==
[2021-11-01 19:47] VITALS: BP 130/84; PULSE 89; RESP 20; TEMP 98.7
[2021-11-01] MEDS ORDERED: FAMOTIDINE 20 MG TAB PO STA (20:05)
--- NOTE | 2021-11-01 20:14 | ED ---
General Adult HPI - General Chief complaint: Allergic Reaction Stated complaint: Allergic Reaction Time Seen by Provider: 11/01/21 20:00 Source: patient, RN notes reviewed, old records reviewed Mode of arrival: ambulatory Limitations: no limitations - History of Present Illness Initial comments: Well-appearing 50-year-old male, alert and oriented, in no acute distress, presents with concerns for an ALLERGIC reaction to nystatin or azithromycin. Patient states he was seen in urgent care for cough and oral lesions last week and was told he had shingles in his mouth and throat and placed on valcyclovir. He returned two days ago to the clinic for thrush on tongue and was prescribed nystatin and Zithromax for a pneumonia. He states he's had 5 doses of the nystatin and states his mouth started burning and his throat felt numb. He felt this was an ALLERGIC reaction stating he's had ALLERGIC reactions to many medicines in the past. He did call his doctor at the [facility] and was told they could not get him in today to come to the emergency room. He states that he took Benadryl at 3:30 today. The symptoms have improved. He denies any nausea, vomiting, diarrhea, shortness of breath, or fevers. -: days(s) (1) Location: mouth (tongue and throat) Severity scale (1-10): 0 Consistency: constant Associated Symptoms: cough, other (thrush) Treatments Prior to Arrival: other (zpack and nystatin) - Related Data Home Medications Medication Instructions Recorded Confirmed Apremilast [Otezla] 30 mg PO BID 08/14/20 07/04/21 Allergies Allergy/AdvReac Type Severity Reaction Status Date / Time aspirin Allergy Dyspnea Verified 11/01/21 19:43 copper Allergy BLISTERS,SKIN Verified 11/01/21 19:43 PEELS" cortisone Allergy Unknown Verified 11/01/21 19:43 grape Allergy Anaphylaxis Verified 11/01/21 19:43 ibuprofen [From Motrin] Allergy Anaphylaxis Verified 11/01/21 19:43 Iodine and Iodide Containing Allergy Dyspnea Verified 11/01/21 19:43 Produc lemon Allergy Anaphylaxis Verified 11/01/21 19:43 nickel Allergy BLISTERS, Verified 11/01/21 19:43 SKIN PEELS NSAIDS (Non-Steroidal Allergy Anaphylaxis Verified 11/01/21 19:43 Anti-Inflamma warfarin Allergy Anaphylaxis Verified 11/01/21 19:43 Review of Systems ROS Statement: Those systems with pertinent positive or pertinent negative responses have been documented in the HPI. ROS Other: All systems not noted in ROS Statement are negative. Past Medical History Past Medical History: Deep Vein Thrombosis (DVT), Osteoarthritis (OA) Additional Past Medical History / Comment(s): ankylosing spondylitis History of Any Multi-Drug Resistant Organisms: None Reported Past Surgical History: Joint Replacement, Orthopedic Surgery Additional Past Surgical History / Comment(s): L hand surg., right knee replacement x2, RIGHT FEMUR SURGERY X2, RIGHT SHOULDER SURGERY X2 Past Anesthesia/Blood Transfusion Reactions: Postoperative Nausea & Vomiting (PONV) Past Psychological History: No Psychological Hx Reported Smoking Status: Never smoker Past Alcohol Use History: None Reported Past Drug Use History: None Reported - Past Family History Mother Family Medical History: Cancer Additional Family Medical History / Comment(s): LEUKEMIA General Exam Limitations: no limitations General appearance: alert, in no apparent distress Eye exam: Present: normal appearance. Absent: scleral icterus, conjunctival injection ENT exam: Present: other (Thrush to the tongue) Expanded Mouth exam: Present: tongue normal, tongue elevation, other. Absent: drooling, trismus, muffled voice Throat exam: normal inspection. negative: tonsillar erythema, tonsillomegaly, tonsillar exudate, R peritonsillar mass, L peritonsillar mass Neck exam: Present: normal inspection, tenderness (anterior Cervical chain), full ROM. Absent: meningismus, lymphadenopathy, thyromegaly Respiratory exam: Present: normal lung sounds bilaterally. Absent: respiratory distress, wheezes, rales, rhonchi, stridor, chest wall tenderness, accessory muscle use, decreased breath sounds Cardiovascular Exam: Present: regular rate, normal heart sounds Back exam: Present: normal inspection. Absent: tenderness, CVA tenderness (R), CVA tenderness (L), rash noted Neurological exam: Present: alert, oriented X3 Psychiatric exam: Present: normal affect, normal mood Skin exam: Present: warm, dry, normal color. Absent: cyanosis, diaphoretic, erythema, vesicles, petechiae, pallor Course Vital Signs 11/01/21 19:44 Temperature 98.7 F Pulse Rate 89 Respiratory 20 Rate Blood Pressure 130/84 O2 Sat by Pulse 96 Oximetry Medical Decision Making - Medical Decision Making 50-year-old male in no acute distress presents with possible ALLERGIC reaction to nystatin or azithromycin. He did take benadryl prior to arrival with some resolution of symptoms. On exam lung sounds are clear to auscultation. Patient is afebrile. No rashes noted. No nausea,vomiting or diarrhea. Oxygen saturation 96% on room air. Vital signs are stable. Oral candidiasis does wipe off, no bleeding. Chest x-ray shows no pleural effusion, no infiltrates, no acute cardiopulmonary process. I spoke with patient at length regarding his symptoms. I recommended he stop the Zithromax, continue the nystatin for the oral candidiasis and always rinse his mouth after using his inhalers. Because the patient has had a cough for a week with oral candidiasis and complaints of throat burning, I offered HIV testing and he declined. I believe his oral candidiasis may be related to his inhalers. He states will follow-up with his primary care doctor next week. He was discharged home with stable vital signs, lungs clear to auscultation. Case discussed with Dr. Friedman Disposition Clinical Impression: Oral candidiasis Disposition: HOME SELF-CARE Condition: Good Instructions (If sedation given, give patient instructions): Oral Candidiasis (ED) Additional Instructions: Continue the nystatin as prescribed until the thrush resolves and an additional 48 hours after to ensure resolution. You can stop taking azithromycin antibiotic as your chest xr does not show pneumonia at this time. Follow-up with the primary care doctor next week. Return to the emergency room with any new or concerning symptoms. Is patient prescribed a controlled substance at d/c from ED?: No Referrals: [facility],Clinic [Primary Care Provider] - 1-2 days Time of Disposition: 21:27
--- NOTE | 2021-11-01 20:18 | XR ---
EXAMINATION TYPE: XR chest 2V DATE OF EXAM: 11/01/2021 COMPARISON: NONE HISTORY: Cough TECHNIQUE: Frontal and lateral views of the chest are obtained. FINDINGS: There is no focal air space opacity, pleural effusion, or pneumothorax seen. The cardiac silhouette size is within normal limits. The osseous structures are intact. IMPRESSION: No acute cardiopulmonary process.
== END 2021-11-01 21:47 | disposition home or self-care (01) ==
LOC: EC 19:42
DX: B37.0 Candidal stomatitis (principal); M19.90 Unspecified osteoarthritis, unspecified site; Z88.8 Allergy status to other drugs, medicaments and biological substances; Z91.048 Other nonmedicinal substance allergy status; Z91.018 Allergy to other foods; Z88.6 Allergy status to analgesic agent; Z91.09 Other allergy status, other than to drugs and biological substances; Z79.899 Other long term (current) drug therapy
CPT/HCPCS: 71046; 99283

== ENCOUNTER → 2022-03-14 | Outpatient (CLI) | payer OTHER ==
--- NOTE | 2022-03-15 03:49 | MR ---
EXAMINATION TYPE: MR shoulder RT wo con DATE OF EXAM: 03/14/2022 COMPARISON: None HISTORY: Right shoulder pain, history of injury/surgery. Multiplanar multiecho imaging of the right shoulder with no contrast The glenoid jadon appear intact. Subscapularis tendon is intact. Biceps tendon is intact. No evidence of any significant shoulder joint effusion. There is hypertrophic spurring at the AC joint with mini mal subacromial impingement. The supraspinatus tendon appears intact. No retraction. The infraspinatu s tendon is intact. No evidence of a fracture. No focal bone destruction. IMPRESSION: No evidence of rotator cuff tear. There is some mild spurring and deformity at the AC joint that coul d relate to previous surgery or injury. No fracture seen.
== END | disposition home or self-care (01) ==
LOC: RADMRIMAIN 17:46
DX: S46.011A Strain of muscle(s) and tendon(s) of the rotator cuff of right shoulder, initial encounter (principal); X58.XXXA Exposure to other specified factors, initial encounter

== ENCOUNTER 2022-04-09 07:58 | Emergency (ER) | payer OTHER ==
[2022-04-09 08:05] VITALS: TEMP 99.2
--- NOTE | 2022-04-09 08:23 | ED ---
Allergic Reaction HPI - General Chief complaint: Allergic Reaction Stated complaint: SOB post op Time Seen by Provider: 04/09/22 08:10 Source: patient, RN notes reviewed, old records reviewed Mode of arrival: ambulatory Limitations: no limitations - History of Present Illness Initial Comments: This is a well-appearing 51-year-old male that presents to the emergency room with possible ALLERGIC reaction to ropivacaine. He had right rotator cuff surgery yesterday at [facility] and a pain pump was inserted with ropivacaine. He states last night around 10 PM he started to have nasal congestion and throat irritation which is the same reaction he has prior to ALLERGIC reactions to medications. He did take 2 Benadryl at 10 PM last night. This morning he took an additional 2 Benadryl and gave himself his EpiPen at 6 AM and turned off the pump. He believes it is related to the ropivacaine. He states he did have a headache, felt like his throat was closing, and was short of breath. Denies any vomiting. He states he does feel better at this time. He does have a history of several medication ALLERGIES including Medrol Dosepak. Complaint: allergic reaction -: hour(s) (10) Exposure: medication (ropivicaine) Symptoms: difficulty swallowing, difficulty breathing Treatment Prior to Arrival: benadryl, epinephrine - Related Data Home Medications Medication Instructions Recorded Confirmed Apremilast [Otezla] 30 mg PO BID 08/14/20 04/09/22 Acetaminophen-Codeine 300-30mg 1 tab PO TID PRN 04/09/22 04/09/22 [Tylenol w/codeine #3] Advair Unknown Dose 1 puff INHALATION RT-BID 04/09/22 04/09/22 Albuterol Inhaler [Ventolin Hfa 1 puff INHALATION RT-Q6H PRN 04/09/22 04/09/22 Inhaler] Clobetasol Propionate [Temovate 1 applic TOPICAL BID PRN 04/09/22 04/09/22 0.05% Cream] Fluoride (Sodium) [Sodium Fluoride] 1 applic DENTAL HS 04/09/22 04/09/22 Lidocaine 5% Patch [Lidoderm] 2 patch TOPICAL DAILY PRN 04/09/22 04/09/22 Montelukast [Singulair] 10 mg PO HS 04/09/22 04/09/22 Naloxone HCl 4 mg NS ONCE PRN 04/09/22 04/09/22 Previous Rx's Medication Instructions Recorded EPINEPHrine (Auto Inject) [Epipen] 0.3 mg IM ONCE PRN #1 each 04/09/22 Allergies Allergy/AdvReac Type Severity Reaction Status Date / Time aspirin Allergy Dyspnea Verified 04/09/22 10:45 copper Allergy BLISTERS,SKIN Verified 04/09/22 10:45 PEELS" cortisone Allergy Unknown Verified 04/09/22 10:45 grape Allergy Anaphylaxis Verified 04/09/22 10:45 ibuprofen [From Motrin] Allergy Anaphylaxis Verified 04/09/22 10:45 Iodine and Iodide Containing Allergy Dyspnea Verified 04/09/22 10:45 Produc lemon Allergy Anaphylaxis Verified 04/09/22 10:45 nickel Allergy BLISTERS, Verified 04/09/22 10:45 SKIN PEELS NSAIDS (Non-Steroidal Allergy Anaphylaxis Verified 04/09/22 10:45 Anti-Inflamma warfarin Allergy Anaphylaxis Verified 04/09/22 10:45 Review of Systems ROS Statement: Those systems with pertinent positive or pertinent negative responses have been documented in the HPI. ROS Other: All systems not noted in ROS Statement are negative. Past Medical History Past Medical History: Deep Vein Thrombosis (DVT), Osteoarthritis (OA) Additional Past Medical History / Comment(s): ankylosing spondylitis History of Any Multi-Drug Resistant Organisms: None Reported Past Surgical History: Joint Replacement, Orthopedic Surgery Additional Past Surgical History / Comment(s): L hand surg., right knee replacement x2, RIGHT FEMUR SURGERY X2, RIGHT SHOULDER SURGERY X2 Past Anesthesia/Blood Transfusion Reactions: Postoperative Nausea & Vomiting (PONV) Past Psychological History: No Psychological Hx Reported Smoking Status: Never smoker Past Alcohol Use History: None Reported Past Drug Use History: None Reported - Past Family History Mother Family Medical History: Cancer Additional Family Medical History / Comment(s): LEUKEMIA General Exam Limitations: no limitations General appearance: alert, in no apparent distress Head exam: Present: atraumatic ENT exam: Present: normal oropharynx, mucous membranes moist Expanded Throat exam: negative: tonsillar erythema, tonsillomegaly, tonsillar exudate, R peritonsillar mass, L peritonsillar mass Neck exam: Present: other (Tegaderm dressing to right external jugular status post IV insertion from surgery yesterday) Respiratory exam: Present: normal lung sounds bilaterally. Absent: respiratory distress, accessory muscle use Cardiovascular Exam: Present: regular rate GI/Abdominal exam: Present: soft Extremities exam: Present: normal capillary refill. Absent: pedal edema Back exam: Present: normal inspection. Absent: tenderness, rash noted Neurological exam: Present: alert, oriented X3 Psychiatric exam: Present: anxious Skin exam: Present: warm, dry, normal color. Absent: cyanosis, diaphoretic, petechiae, pallor Course Vital Signs 04/09/22 04/09/22 04/09/22 08:01 08:22 10:46 Temperature 99.2 F Pulse Rate 87 76 Respiratory 18 22 18 Rate Blood Pressure 129/82 129/83 O2 Sat by Pulse 98 98 Oximetry Medical Decision Making - Medical Decision Making Chest x-ray shows no evidence of pneumothorax, pleural effusion or pneumonia. No acute process. He was observed in the emergency room for a couple hours with no symptoms. He states that his throat does not feel swollen, he is breathing without any respiratory distress, and lung sounds are clear to auscultation. No vomiting, no rashes. Vital signs are stable. He was directed to use his EpiPen again as needed. Continue Benadryl and Pepcid while at home. I advised him to call his surgeon to notify him of his reaction and discuss other pain management options as needed. Follow-up with his primary care doctor this week. He is agreeable to this plan of care. Case was discussed with Dr. Null. Disposition Clinical Impression: Allergic reaction to drug Disposition: HOME SELF-CARE Condition: Good Instructions (If sedation given, give patient instructions): General Allergic Reaction (ED) Additional Instructions: Use Benadryl and Pepcid for the next 48 hours. Use your EpiPen as needed for any worsening symptoms especially difficulty breathing or feeling that your throat is closing. Do not use pain medication in pain pump. Notify your surgeon of your reaction today. Return to the emergency room with any new or concerning symptoms. Prescriptions: EPINEPHrine (Auto Inject) [Epipen] 0.3 mg IM ONCE PRN #1 each PRN Reason: Anaphylaxis Is patient prescribed a controlled substance at d/c from ED?: No Referrals: [facility] [Primary Care Provider] - 1-2 days Time of Disposition: 10:23
[2022-04-09] MEDS ORDERED: SODIUM CHLORIDE 0.9% 500 ML 500 ML IV ONE (08:25)
[2022-04-09] MEDS ORDERED: FAMOTIDINE 20 MG/2 ML VIAL IV STA (08:56)
--- NOTE | 2022-04-09 09:04 | XR ---
EXAMINATION TYPE: XR chest 2V DATE OF EXAM: 04/09/2022 COMPARISON: NONE TECHNIQUE: PA and lateral views submitted. HISTORY: Shortness of breath FINDINGS: The lungs are clear and there is no pneumothorax, pleural effusion, or focal pneumonia. Heart size normal. No failure. Hyperinflation suggests COPD. Tiny calcified granuloma right upper lobe stable. IMPRESSION: 1. No acute process. Correlate for COPD.
[2022-04-09] MEDS ORDERED: ACETAMINOPHEN TAB 500 MG TAB PO STA (09:13)
[2022-04-09 10:50] VITALS: BP 129/83; PULSE 76; RESP 18
== END 2022-04-09 10:46 | disposition home or self-care (01) ==
LOC: EC 07:58
DX: T78.40XA Allergy, unspecified, initial encounter (principal); Z91.048 Other nonmedicinal substance allergy status; Z88.6 Allergy status to analgesic agent; Z91.018 Allergy to other foods; Z88.5 Allergy status to narcotic agent; Z88.8 Allergy status to other drugs, medicaments and biological substances; Z91.041 Radiographic dye allergy status
CPT/HCPCS: 71046; 96361; 96374; 99284

== ENCOUNTER → 2023-01-07 | Outpatient (CLI) | payer OTHER ==
--- NOTE | 2023-01-08 21:12 | MR ---
EXAMINATION TYPE: MR shoulder RT wo con DATE OF EXAM: 01/07/2023 COMPARISON: Radiograph - and prior shoulder MRI 03/14/2022 HISTORY: 52-year-old male M25.511, Rt shoulder pain, pulling injury TECHNIQUE: Multiplanar, multisequence imaging of the right shoulder is performed without contrast. FINDINGS: The intracapsular portion of the long head biceps tendon is not well seen. The tendon may be torn and chronically scarred down in the bicipital groove. The majority of the subscapularis tendon is intact. Postsurgical change at the AC joint with postsurgical widening and probable prior acromioplasty. There is a mild subacromial/subdeltoid bursal effusion and scattered foci of susceptibility artifact related to prior surgery. No os acromiale. There is some osseous edema and bony thinning along the un dersurface of the acromion. Postsurgical change of interval supraspinatus tendon repair. There is postsurgical irregularity and s ome thinning of the supraspinatus tendon but no retracted tear. There is some intraosseous cyst forma tion measuring 1.7 cm at the location of the screw anchor. Mild degenerative change of the glenohumeral joint with some inferior humeral head articular cartilag e thinning. No glenohumeral joint effusion. No discrete labral tear given nonarthrographic technique and no paral abral cyst. No suspicious bone marrow replacement. No atrophy of the rotator cuff musculature. IMPRESSION: 1. Interval supraspinatus tendon repair. There is postsurgical heterogeneity and thinning of the supr aspinatus tendon but no re-tear. We do note a 1.7 cm intraosseous ganglion/cyst formation within the humeral head at the location of the screw anchor. Questionable clinical significance. 2. Intracapsular portion of the long head biceps tendon is not well seen. It may be chronically torn and scarred down in the bicipital groove. 3. Apparent thinning of the acromion with some osseous edema. Possible impaction changes if there are any signs of instability at the glenohumeral joint. Mild subacromial/subdeltoid bursitis. 4. Chronic postsurgical widening at the AC joint
== END | disposition home or self-care (01) ==
LOC: RADMRIMAIN 11:04
PROVIDERS: ATTEND Orthopaedic Surgery
DX: M75.111 Incomplete rotator cuff tear or rupture of right shoulder, not specified as traumatic (principal); M25.511 Pain in right shoulder; R60.0 Localized edema

== ENCOUNTER → 2023-02-07 | Outpatient (CLI) | payer OTHER ==
[2023-02-08 02:13] LABS: Anion Gap 13.9 mmol/L (4.00-12.00); Carbon Dioxide 24.1 mmol/L (21.6-31.8); Potassium 3.9 mmol/L (3.5-5.5)
[2023-02-08 02:28] LABS: Basophils # (A) 0.04 X 10*3/uL (0.00-0.10); Basophils % (A) 0.6 %; Eosinophils # (A) 0.06 X 10*3/uL (0.04-0.35); Eosinophils % (A) 0.9 %; HCT 45.3 % (39.6-50.0); Lymphocytes # (A) 1.34 X 10*3/uL (0.90-5.00); Lymphocytes % (A) 21.2 %; MCH 29.4 pg (27.0-32.0); MCHC 33.1 d/dL (32.0-37.0); MCV 88.8 FL (80.0-97.0); Mean Platelet Volume 11.5 FL (9.5-12.2); Monocytes # (A) 0.48 X 10*3/uL (0.20-1.00); Monocytes % (A) 7.6 %; NRBC Per 100 WBC 0 X 10*3/uL (0.00-0.01); Neutrophils % (A) 69.5 %; Platelet Count 203 X 10*3/uL (140-440); RDW 12.1 % (11.5-14.5); WBC 6.33 X 10*3/uL (4.50-10.00)
== END | disposition home or self-care (01) ==
LOC: LABPAT 13:55
PROVIDERS: ATTEND Orthopaedic Surgery
DX: Z01.812 Encounter for preprocedural laboratory examination (principal); M75.42 Impingement syndrome of left shoulder; I45.10 Unspecified right bundle-branch block; R94.31 Abnormal electrocardiogram [ECG] [EKG]
CPT/HCPCS: 80051; 85025; 93005

== ENCOUNTER → 2023-03-13 | Outpatient (CLI) | payer OTHER ==
[2023-03-13 16:04] LABS: Basophils # (A) 0.03 X 10*3/uL (0.00-0.10); Basophils % (A) 0.5 %; Eosinophils # (A) 0.07 X 10*3/uL (0.04-0.35); Eosinophils % (A) 1.1 %; HCT 45.4 % (39.6-50.0); HGB 15.1 d/dL (12.0-15.0); Lymphocytes # (A) 1.49 X 10*3/uL (0.90-5.00); Lymphocytes % (A) 23.7 %; MCH 28.9 pg (27.0-32.0); MCHC 33.3 d/dL (32.0-37.0); MCV 86.8 FL (80.0-97.0); Mean Platelet Volume 11.3 FL (9.5-12.2); Monocytes # (A) 0.49 X 10*3/uL (0.20-1.00); Monocytes % (A) 7.8 %; NRBC Per 100 WBC 0 X 10*3/uL (0.00-0.01); Neutrophils # (A) 4.21 X 10*3/uL (1.80-7.70); Neutrophils % (A) 66.7 %; Platelet Count 199 X 10*3/uL (140-440); RBC 5.23 X 10*6/uL (4.40-5.60); RDW 11.9 % (11.5-14.5)
[2023-03-13 16:20] LABS: Anion Gap 7.4 mmol/L (4.00-12.00); Carbon Dioxide 29.6 mmol/L (21.6-31.8); Potassium 4.7 mmol/L (3.5-5.5)
== END | disposition home or self-care (01) ==
LOC: LABPAT 10:31
PROVIDERS: ATTEND Orthopaedic Surgery
DX: Z01.812 Encounter for preprocedural laboratory examination (principal); M75.41 Impingement syndrome of right shoulder
CPT/HCPCS: 80051; 85025

== ENCOUNTER 2023-03-20 09:47 | Day surgery (SDC) | payer OTHER ==
--- NOTE | 2023-03-19 15:22 | HP ---
HISTORY AND PHYSICAL DATE OF SURGERY: 03/20/2023. HISTORY OF PRESENT ILLNESS: Yakov Horn is a 52-year-old gentleman seen with progressive right shoulder pain. We discussed options for treatment. He elected to proceed with right shoulder arthroscopy. Consent regarding the procedure was obtained. PAST MEDICAL HISTORY: Noncontributory. PAST SURGICAL HISTORY: Right knee arthroscopy, right shoulder arthroscopy, right total knee arthroplasty, hand surgery. DAILY MEDICATIONS: Acetaminophen. ALLERGIES: 1. Celebrex. 2. Ibuprofen. 3. Contrast media. 4. Tramadol. 5. Warfarin. SOCIAL HISTORY: He denies tobacco use. PHYSICAL EVALUATION OF THE RIGHT SHOULDER: He has a previous well-healed incision. He flexes to 140 degrees, abduction to 90 degrees, external rotation to 40 degrees with some pain and weakness. Tenderness along the anterolateral acromion and rotator cuff insertion. Impingement is positive at 90 degrees. Cross-body adduction sign is positive. Drop-arm sign is positive. Distal neurovascular exam is intact. RADIOGRAPHS: Right shoulder revealed a lateral downsloping acromion, evidence for previous Oleg procedure. Cystic changes of the greater tuberosity. MRI of right shoulder revealed a partial rotator cuff tendon tear along with mild osteoarthritic changes. IMPRESSION: 1. Right shoulder impingement with partial rotator cuff tear. 2. Right shoulder adhesive capsulitis. PLAN: Right shoulder arthroscopy, subacromial decompression, possible arthroscopic rotator cuff repair and lysis of adhesions. MMODL / IJN: [id number] /
[~2023-03-20 09:47] MED LIST changes: +HYDROmorphone 0.5 MG/0.5 ML SYRINGE IVP PRN; +LIDOCAINE 1% (10MG/ML) FOR IV START INTRADERMA PRN; +ONDANSETRON 4 MG/2 ML VIAL IVP ONE
[2023-03-20] MEDS ORDERED: LIDOCAINE 2% (PF) 20 MG/ML 5 ML VIAL ONE ×2 (10:27→10:36)
[2023-03-20] MEDS ORDERED: diphenhydrAMINE 50 MG/ML 1 ML VIAL ONE (10:28)
[2023-03-20] MEDS ORDERED: MIDAZOLAM 2 MG/2 ML VIAL IVP ONE (10:35)
[2023-03-20] MEDS ORDERED: LIDOCAINE 1%-EPI 1:100,000 20 ML VIAL ONE (11:17)
[2023-03-20] MEDS ORDERED: LIDOCAINE 2% (PF) 20 MG/ML 2 ML VIAL ONE (11:17)
[2023-03-20] MEDS ORDERED: fentaNYL (PF) 50 MCG/ML 2 ML AMP ONE (11:17)
[2023-03-20] MEDS ORDERED: SUCCINYLCHOLINE CHLORIDE 200 MG/10 ML VIAL IV ONE (11:17)
[2023-03-20] MEDS ORDERED: PROPOFOL 10 MG/ML 20 ML VIAL IV ONE (11:17)
[2023-03-20] MEDS ORDERED: MIDAZOLAM 2 MG/2 ML VIAL ONE (11:17)
--- NOTE | 2023-03-20 12:00 | P.ANPRN ---
Procedure Note - Anesthesia - Nerve Block Performed Right Interscalene Single Time Out Performed: Yes ([id number]) Date of Procedure: 03/20/23 Location of Patient: PreOp Indication: Acute Post-Operative Pain, Dx/Pain Location (Right shoulder), Requested by Surgeon Specifically requested for management of pain by DrJuanita: Walker Kohler Sedation Type: Sedate with meaningful contact maintained Preparation: Sterile Prep Position: Supine Catheter: None Needle Types: Pajunk Needle Gauge: 21 Ultrasound used to visualize needle placement: Yes Ultrasound used to observe medication spread: Yes Injectate: 2.0% Lidocaine (see comment for volume) (10 mL +1% lidocaine with epinephrine 1: 200,000 = 20mL) Blood Aspirated: No Pain Paresthesia on Injection Noted: No Resistance on Injection: Normal Image Stored and Saved: Yes Events: Uneventful and Well Tolerated
--- NOTE | 2023-03-20 12:39 | P.OP ---
Date of Procedure: 03/20/23 Preoperative Diagnosis: Right shoulder impingement Postoperative Diagnosis: 1. Right shoulder rotator cuff tear 2. Right shoulder impingement 3. Right shoulder adhesions Procedure(s) Performed: 1. Right shoulder arthroscopic rotator cuff repair 2. Right shoulder arthroscopic subacromial decompression 3. Right shoulder arthroscopic lysis of adhesions Implants: 1Arthrex 5.5 swivel lock anchor Anesthesia: GETA, regional (Interscalene block) Surgeon: Walker Kohler Lock Technician #1: Aguilar Leal Estimated Blood Loss (ml): 10 Pathology: none sent Condition: stable Disposition: PACU Indications for Procedure: 52-year-old gentleman seen with progressive right shoulder pain. After treatment options were discussed, he elected to proceed with arthroscopy. Operative Findings: See description of procedure Description of Procedure: Patient underwent an interscalene block by department of anesthesia. The patient was then taken to the operative suite. The patient underwent a general anesthetic by the department of anesthesia. The patient was placed into a lateral position and secured. There was appropriate padding of the bony prominence. Right shoulder was then prepped and draped in normal sterile orthopedic fashion. We placed the extremity in 10 pounds of longitudinal traction. A posterior incision was now made for a posterior working portal site. The trocar and cannula were inserted into the glenohumeral joint. Arthroscopy was initiated. Spinal needle was now inserted anteriorly, to ascertain the anterior working portal site. An incision was now made in that area, a trocar was inserted followed by a probe. There was some superficial fraying of the superior labrum. There were grade 1 chondromalacia changes of the glenoid fossa and humeral head with no significant tears. The biceps tendon was absent. The remaining labrum was thoroughly probed and was found to be stable. I introduced a motorized shaver and debrided out the superficial fraying of the superior labrum. I did note some significant adhesions along the anterior superior posterior aspect of the shoulder. I now performed a lysis of adhesions. I noted adequate lysis of the intra-articular adhesions. Instruments were now removed from the glenohumeral joint. Utilizing the posterior working portal site, the trocar and cannula were inserted into the subacromial space. Arthroscopy initiated. I made an incision 2 fingerbreadths lateral to the acromion. I introduced my trocar followed by my ArthroCare ablator. I now began ablating thick subacromial bursal tissue, which exposed the undersurface of the anterior acromion. There was diminished subacromial space. There was a prominent lateral anterior acromion present. I now introduced a motorized bur and performed a subacromial decompression. There was adequate decompression of subacromial space present. The acromioclavicular joint appeared stable with evidence for previous Oleg procedure. There was significant adhesions noted along the anterior lateral aspect of the shoulder. I now performed a lysis of the adhesions. There was adequate debridement of all the adhesions noted. There was evidence for some suture along the acromion consistent with history of previous open repair. The deltoid insertion appeared stable throughout that area. I turned my attention to the rotator cuff tendon. There was evidence for a suture in this distal aspect the supraspinatus tendon. There was a tear in that area. I debrided the margins getting down to stable tendon tissue. The tear/defect measured 1.5 cm and was freely mobile over the footprint. I abraded the footprint with a motorized bur. With the assistance of Og HESS past 3 everted mattress sutures through good bites of rotator cuff tendon. I now punched hole in the footprint area for insertion of an anchor. I now passed all 6 limbs of suture through the eyelet of an Arthrex 5.5 swivel lock anchor. I placed the eyelet into the pre-punched hole. I held in position while Og HESS tension all 6 limbs of suture and deployed the anchor with good fixation noted. All residual suture limbs were now clipped. We had good compression of the tendon along the entire footprint. Instruments now removed from the portal sites. All portal sites were approximated with nylon suture. Sterile dressings were applied followed by a shoulder sling. Aguilar HESS assisted in this complex case. The patient was awakened, transferred to a bed, and taken to recovery in stable condition.
[2023-03-20 12:53] VITALS: TEMP 97.2
[2023-03-20] MEDS ORDERED: SODIUM CHLORIDE 0.9% 1,000 ML IV ONE ×2 (13:23)
[2023-03-20 13:50] VITALS: BP 135/84; PULSE 95; RESP 18
== END 2023-03-20 14:18 | disposition home or self-care (01) ==
LOC: OR 09:47
PROVIDERS: ATTEND Orthopaedic Surgery
DX: M75.41 Impingement syndrome of right shoulder (principal); M75.101 Unspecified rotator cuff tear or rupture of right shoulder, not specified as traumatic; G89.18 Other acute postprocedural pain; Z88.6 Allergy status to analgesic agent; Z88.5 Allergy status to narcotic agent; Z79.899 Other long term (current) drug therapy
CPT/HCPCS: 29827; 29826; 64415; C1713; J2250; J0330; J0690; J2405; J3010; J2704; J2001

== ENCOUNTER 2023-03-21 16:23 | Emergency (ER) | payer OTHER ==
[2023-03-21 16:58] VITALS: TEMP 98.5
--- NOTE | 2023-03-21 17:06 | ED ---
ENT HPI - General Chief complaint: Allergic Reaction Stated complaint: Diff Swallowing & Breathing, Poss Allergic Reactio Source: patient Mode of arrival: ambulatory Limitations: no limitations - History of Present Illness Initial comments: Is a 52-year-old male with multiple medical ALLERGIES who presents the ER today with concern that his tongue is slightly swollen he may be having an ALLERGIC reaction after surgery yesterday. Patient is shoulder repair yesterday he did receive some anesthetic locally to the shoulder and is concerned that he may be having an ALLERGIC reaction. Patient states he developed a rash around the bandage Cicely remove the bandage today he feels as though his tongue is swollen and he's noticed some sores on his lips after being intubated and was concerned this may be reaction. He's taken Benadryl throughout the day today he cannot take steroids and has not taken Pepcid. He has no shortness of breath but does report some pleuritic discomfort with deep breathing that began immediately after being extubated. No fever no productive cough no wheeze. No rash outside of the area of the bandage. No nausea or vomiting. - Related Data Home Medications Medication Instructions Recorded Confirmed Apremilast [Otezla] 30 mg PO BID 08/14/20 03/20/23 Acetaminophen-Codeine 300-30mg 1 tab PO TID PRN 04/09/22 03/20/23 [Tylenol w/codeine #3] Albuterol Inhaler [Ventolin Hfa 1 puff INHALATION BID 04/09/22 03/20/23 Inhaler] Fluoride (Sodium) [Sodium Fluoride] 1 applic DENTAL TID 04/09/22 03/20/23 Lidocaine 5% Patch [Lidoderm] 2 patch TOPICAL DAILY PRN 04/09/22 03/20/23 Montelukast [Singulair] 10 mg PO HS 04/09/22 03/20/23 methocarbamoL [Methocarbamol] 500 mg PO TID 02/14/23 03/20/23 Previous Rx's Medication Instructions Recorded EPINEPHrine (Auto Inject) [Epipen] 0.3 mg IM ONCE PRN #1 each 04/09/22 HYDROcodone/APAP 7.5-325MG [[place] 1 each PO Q6HR PRN #28 tab 03/20/23 7.5] Allergies Allergy/AdvReac Type Severity Reaction Status Date / Time aspirin Allergy Anaphylaxis Verified 03/21/23 16:59 azithromycin Allergy tongue Verified 03/21/23 16:59 [From Zithromax Z-Alfonso] swelling copper Allergy BLISTERS,SKIN Verified 03/21/23 16:59 PEELS" cortisone Allergy Anaphylaxis Verified 03/21/23 16:59 fluticasone Allergy Dyspnea Verified 03/21/23 16:59 [From Advair Diskus] grape Allergy Anaphylaxis Verified 03/21/23 16:59 hydroxyzine Allergy Anaphylaxis Verified 03/21/23 16:59 ibuprofen [From Motrin] Allergy Anaphylaxis Verified 03/21/23 16:59 Iodine and Iodide Containing Allergy Dyspnea Verified 03/21/23 16:59 Produc lemon Allergy Anaphylaxis Verified 03/21/23 16:59 nickel Allergy BLISTERS, Verified 03/21/23 16:59 SKIN PEELS nortriptyline Allergy hemorrhage Verified 03/21/23 16:59 NSAIDS (Non-Steroidal Allergy Anaphylaxis Verified 03/21/23 16:59 Anti-Inflamma ropivacaine Allergy Anaphylaxis Verified 03/21/23 16:59 salmeterol Allergy Dyspnea Verified 03/21/23 16:59 [From Advair Diskus] tramadol Allergy nausea/ Verified 03/21/23 16:59 itching warfarin Allergy Anaphylaxis Verified 03/21/23 16:59 Review of Systems ROS Statement: Those systems with pertinent positive or pertinent negative responses have been documented in the HPI. ROS Other: All systems not noted in ROS Statement are negative. Past Medical History Past Medical History: Deep Vein Thrombosis (DVT), Osteoarthritis (OA) Additional Past Medical History / Comment(s): ankylosing spondylitis History of Any Multi-Drug Resistant Organisms: None Reported Past Surgical History: Joint Replacement, Orthopedic Surgery Additional Past Surgical History / Comment(s): L hand surg., right knee replacement x2, RIGHT FEMUR SURGERY X2, RIGHT SHOULDER SURGERY X2 Past Anesthesia/Blood Transfusion Reactions: Postoperative Nausea & Vomiting (PONV) Past Psychological History: No Psychological Hx Reported Smoking Status: Never smoker Past Alcohol Use History: None Reported Past Drug Use History: None Reported - Past Family History Mother Family Medical History: Cancer Additional Family Medical History / Comment(s): LEUKEMIA General Exam - General Exam Comments Initial Comments: Physical Exam GENERAL: Patient is well-developed and well-nourished. Patient is nontoxic and well- hydrated and is in no distress. HENT: Normocephalic, Atraumatic. No angioedema of the tongue, lips or uvula No uvula hematoma EYES: PERRL, EOMI PULMONARY: Unlabored respirations. No audible rales rhonchi or wheezing was noted. CARDIOVASCULAR: There is a regular rate and rhythm without any murmurs gallops or rubs. ABDOMEN: Soft and nontender with normal bowel sounds. SKIN: There is some skin irritation surrounding the surgical site, no blisters no hives : Deferred NEUROLOGIC: Patient is alert and oriented x3. Moving all extremities spontaneously MUSCULOSKELETAL: Decreased ROM of right shoulder secondary to surgery PSYCHIATRIC: Normal psychiatric evaluation. Limitations: no limitations Course Vital Signs 03/21/23 03/21/23 03/21/23 16:56 17:04 19:37 Temperature 98.5 F Pulse Rate 92 108 H 93 Respiratory 22 18 18 Rate Blood Pressure 139/88 170/96 131/82 O2 Sat by Pulse 96 96 96 Oximetry Medical Decision Making - Medical Decision Making The patient was seen and evaluated history was obtained from the patient's history and physical exam are unremarkable others no signs of a systemic ALLERGIC reaction. Chest x-ray was obtained as the patient reported some discomfort since being extubated yesterday. Chest x-ray with no acute findings there is no pneumothorax, no pneumonia She has remained awake alert oriented stable with no hypoxia tachycardia or complaints while in the ER. Discomfort with plan for discharge home with supportive care. Was pt. sent in by a medical professional or institution (, PA, SHIP STEWARD, urgent care, hospital, or assisted...) When possible be specific @ -No Did you speak to anyone other than the patient for history (EMS, parent, family, police, friend...)? What history was obtained from this source @ -No Did you review nursing and triage notes (agree or disagree)? Why? @ -I reviewed and agree with nursing and triage notes Were old charts reviewed (outside hosp., previous admission, EMS record, old EKG, old radiological studies, urgent care reports/EKG's, assisted records)? Report findings @ -No old charts were reviewed Differential Diagnosis (chest pain, altered mental status, abdominal pain women, abdominal pain men, vaginal bleeding, weakness, fever, dyspnea, syncope, headache, dizziness, GI bleed, back pain, seizure, CVA, palpatations, mental health, musculoskeletal)? @ -not applicable EKG interpreted by me (3pts min.). @ -As above X-rays interpreted by me (1pt min.). @ -Chest x-ray no acute findings CT interpreted by me (1pt min.). @ -None done U/S interpreted by me (1pt. min.). @ -None done What testing was considered but not performed or refused? (CT, X-rays, U/S, labs)? Why? @ -None What meds were considered but not given or refused? Why? @ -Prednisone, Pepcid patient declined prednisone due to ALLERGY, and Pepcid as he has at home Did you discuss the management of the patient with other professionals (professionals i.e. , PA, SHIP STEWARD, lab, RT, psych nurse, social welfare research worker, languages and literature instructor, teacher, delinquency prevention officer, case monitor)? Give summary @ -No Was smoking cessation discussed for >3mins.? @ -No Was critical care preformed (if so, how long)? @ -No Were there social determinants of health that impacted care today? How? (Homelessness, low income, unemployed, alcoholism, drug addiction, transportation, low edu. Level, literacy, decrease access to med. care, prison, rehab)? @ -No Was there de-escalation of care discussed even if they declined (Discuss DNR or withdrawal of care, Hospice)? DNR status @ -No What co-morbidities impacted this encounter? (DM, HTN, Smoking, COPD, CAD, Cancer, CVA, ARF, Chemo, Hep., AIDS, mental health diagnosis, sleep apnea, morbid obesity)? @ -None Was patient admitted / discharged? Hospital course, mention meds given and route, prescriptions, significant lab abnormalities, going to OR and other pertinent info. @ -Discharge Undiagnosed new problem with uncertain prognosis? @ -No Drug Therapy requiring intensive monitoring for toxicity (Heparin, Nitro, Insulin, Cardizem)? @ -No Were any procedures done? @ -No Diagnosis/symptom? @ -default Acute, or Chronic, or Acute on Chronic? @ -default Uncomplicated (without systemic symptoms) or Complicated (systemic symptoms)? @ -default Side effects of treatment? @ -No Exacerbation, Progression, or Severe Exacerbation? @ -No Poses a threat to life or bodily function? How? (Chest pain, [place], [place], pneumonia, PE, COPD, DKA, ARF, appy, cholecystitis, CVA, Diverticulitis, Homicidal, Suicidal, threat to staff... and all critical care pts) @ -No Disposition Clinical Impression: Contact dermatitis, Pleuritic pain Disposition: HOME SELF-CARE Condition: Stable Instructions (If sedation given, give patient instructions): Allergic Rhinitis (ED) Is patient prescribed a controlled substance at d/c from ED?: No Referrals: Nonstaff,Physician [Primary Care Provider] - 1-2 days
[2023-03-21 17:08] VITALS: RESP 18
--- NOTE | 2023-03-21 18:42 | XR ---
EXAMINATION TYPE: XR chest 2V DATE OF EXAM: 03/21/2023 6:17 PM COMPARISON: Chest radiographs from 04/09/2022. TECHNIQUE: XR chest 2V Frontal and lateral views of the chest. CLINICAL INDICATION:Male, 52 years old with history of post op pain; FINDINGS: Lungs/Pleura: There is no evidence of pleural effusion, focal consolidation, or pneumothorax. Pulmonary vascularity: Unremarkable. Heart/mediastinum: Cardiomediastinal silhouette is unremarkable. Musculoskeletal: No acute osseous pathology. IMPRESSION: No acute cardiopulmonary disease/process.
[2023-03-21 19:38] VITALS: BP 131/82; PULSE 93
== END 2023-03-21 20:09 | disposition home or self-care (01) ==
LOC: EC 16:23
DX: L25.9 Unspecified contact dermatitis, unspecified cause (principal); R09.1 Pleurisy; M19.90 Unspecified osteoarthritis, unspecified site; Z86.718 Personal history of other venous thrombosis and embolism; Z88.6 Allergy status to analgesic agent; Z88.5 Allergy status to narcotic agent; Z88.8 Allergy status to other drugs, medicaments and biological substances; Z91.018 Allergy to other foods; Z79.899 Other long term (current) drug therapy
CPT/HCPCS: 71046; 99285